=== PATIENT | female | born 1975 | race Caucasian/White ===

== ENCOUNTER 2022-03-12 13:52 | Outpatient (REF) | payer BC, MEDICAID, SELFPAY ==
[2022-03-13 03:14] LABS: CT PCR NOT DETECTED (Not Detect.); NG PCR NOT DETECTED (Not Detect.)
[2022-03-13 09:14] LABS: BV Int Neg Control Negative (Negative); BV Int Pos Control Positive (Positive)
[2022-03-15 09:27] LABS: HPV mRNA E6/E7 rflx Not Detected (Not Detected)
== END 2022-03-12 13:53 | disposition home or self-care (01) ==
LOC: HO.LAB 13:52
PROVIDERS: Visit Provider Advanced Practice Midwife
DX: Z01.419 Encounter for gynecological examination (general) (routine) without abnormal findings (principal); Z11.3 Encounter for screening for infections with a predominantly sexual mode of transmission; Z11.51 Encounter for screening for human papillomavirus (HPV)
CPT/HCPCS: 87480; 87491; 87510; 87591; 87624; 87660; 88142

== ENCOUNTER 2022-03-22 08:43 | Outpatient (REF) | payer BC, MEDICAID, SELFPAY ==
--- NOTE | ~2022-03-22 | MM_ITS ---
EXAMINATION: MM SCREENING DIGITAL BREAST TOMOSYNTHESIS, BILATERAL CLINICAL INFORMATION: Screening. Asymptomatic. The lifetime risk of breast cancer based on the Tyrer-Cuzick Model is 11%. COMPARISON: Mammography: 12/20/2014 (baseline). TECHNIQUE: Digital breast tomosynthesis is performed in both the craniocaudal and mediolateral oblique views along with computer-aided detection (CAD). Synthesized 2D images are generated from the tomosynthesis. Additional exaggerated right CC view is provided. FINDINGS: There are scattered areas of fibroglandular density (ACR BI-RADS breast composition Category b). Breast tissue composition borders on heterogeneously dense. There is no significant mass or architectural abnormality. No abnormal calcifications. Low right axillary tail node again seen. There are some minor asymmetries similar to prior exam. Skin contours are smooth. MM/MM tomosynthesis screening BI IMPRESSION: No significant changes from prior baseline study 2014. ASSESSMENT: BI-RADS 2: Benign RECOMMENDATION: Routine annual mammography screening. This patient's information was entered into a reminder system with a target due date for their next mammogram.
== END 2022-03-22 08:44 | disposition home or self-care (01) ==
LOC: HO.MAMMO 08:43
PROVIDERS: PCP Nurse Practitioner Adult Health; Visit Provider Nurse Practitioner Family
DX: Z12.31 Encounter for screening mammogram for malignant neoplasm of breast (principal)
CPT/HCPCS: 77063; 77067

== ENCOUNTER 2022-06-06 12:22 | Outpatient (REF) | payer BC, MEDICAID, SELFPAY ==
--- NOTE | ~2022-06-06 | US_ITS ---
EXAMINATION: US PELVIS ULTRASOUND CLINICAL INFORMATION: N92.4 - Excessive bleeding in the premenopausal period. Age 46. LMP 05/23/2022. COMPARISON: None TECHNIQUE: Ultrasound of the pelvis is performed using both transabdominal and transvaginal transducers along with Doppler. Transvaginal imaging is performed due to inadequate visualization transabdominally. FINDINGS: Uterus: The uterus is anteverted and measures 9.6 x 5.3 x 6.6 cm. The double wall endometrial thickness is normal at 8 mm. No fluid in uterine cavity. Endometrial echogenicity homogeneous. The uterus is smooth in contour and has normal myometrial echogenicity. No visible fibroid. There are a few tiny nabothian cysts in the cervix. Adnexa: Both ovaries are visualized. There is normal color flow to the adnexa. There is no ovarian torsion. There is no pelvic ascites or fluid collection. No adnexal mass. Right ovary measures 3.1 x 1.9 x 2.0 cm. Volume 6.2 mL. Left ovary measures 3.1 x 2.0 x 2.2 cm. Volume 7.1 mL. US/US pelvic and transvaginal IMPRESSION: -Uterus: Double wall endometrial thickness is 8 mm. No visible fibroid. Small nabothian cyst cervix. -Adnexa: No adnexal mass or pelvic ascites.
== END 2022-06-06 12:23 | disposition home or self-care (01) ==
LOC: HO.US 12:22
PROVIDERS: Visit Provider Advanced Practice Midwife
DX: N92.4 Excessive bleeding in the premenopausal period (principal)
CPT/HCPCS: 76830; 76856

== ENCOUNTER 2022-08-23 07:32 | Outpatient (REF) | payer BC, MEDICAID, SELFPAY ==
[2022-08-23 08:15] LABS: Hematocrit 48.2 % (37.0-47.0); Hemoglobin 15.5 g/dl (12.0-16.0); Mean Corpuscular HGB Conc 32.2 g/dl (31.0-35.0); Mean Corpuscular Hemoglobin 28.3 pg (27.0-33.0); Mean Corpuscular Volume 88.1 fL (80.0-98.0); Mean Platelet Volume 11.3 fL (9.4-12.3); Platelet Count 273 X10*3/uL (160-400); Red Blood Count 5.47 X10*6/uL (4.20-5.50); Red Cell Distribution Width 13.3 % (11.0-16.0); White Blood Count 8.6 X10*3/uL (4.8-10.8)
[2022-08-23 09:13] LABS: Thyroid Stimulating Hormone 1.56 uIU/mL (0.32-4.0)
== END 2022-08-23 07:33 | disposition home or self-care (01) ==
LOC: HO.LAB 07:32
PROVIDERS: PCP Nurse Practitioner Adult Health; Visit Provider Advanced Practice Midwife
DX: N92.4 Excessive bleeding in the premenopausal period (principal)
CPT/HCPCS: 36415; 84443; 85027

== ENCOUNTER 2023-03-24 08:35 | Outpatient (REF) | payer BC, MEDICAID, SELFPAY ==
--- NOTE | ~2023-03-24 | MM_ITS ---
EXAMINATION: MM SCREENING DIGITAL BREAST TOMOSYNTHESIS, BILATERAL CLINICAL INFORMATION: Screening. Asymptomatic. The lifetime risk of breast cancer based on the Tyrer-Cuzick Model is 11.2%. COMPARISON: Mammography: This study is compared with the prior mammogram from 2015. There are no interval mammograms. TECHNIQUE: Digital breast tomosynthesis is performed in both the craniocaudal and mediolateral oblique views along with computer-aided detection (CAD). Synthesized 2D images are generated from the tomosynthesis. FINDINGS: The breasts are heterogeneously dense, which may obscure small masses (ACR BI-RADS breast composition Category c). There are no significant masses, abnormal calcifications, or other abnormalities. MM/MM tomosynthesis screening BI IMPRESSION: No mammographic evidence of malignancy. ASSESSMENT: BI-RADS BI-RADS 1 - Negative RECOMMENDATION: Routine annual mammography screening. 1 year F/U This patient's information was entered into a reminder system with a target due date for their next mammogram.
== END 2023-03-24 08:36 | disposition home or self-care (01) ==
LOC: HO.MAMMO 08:35
PROVIDERS: Visit Provider Nurse Practitioner Adult Health
DX: Z12.31 Encounter for screening mammogram for malignant neoplasm of breast (principal)
CPT/HCPCS: 77063; 77067

== ENCOUNTER → 2023-03-24 09:00 | Outpatient (BNV) | payer BC, MEDICAID, SELFPAY | PROVIDERS: Visit Provider Radiology Diagnostic Radiology | DX: Z12.31 Encounter for screening mammogram for malignant neoplasm of breast (principal) | CPT/HCPCS: 77063; 77067 ==

== ENCOUNTER 2023-04-18 16:09 | Emergency (ER) | payer BC, MEDICAID, SELFPAY ==
--- NOTE | ~2023-04-18 | XR_ITS ---
EXAMINATION: XR KNEE, LEFT CLINICAL INFORMATION: Left knee pain medially. COMPARISON: None available. TECHNIQUE: Four views of the left knee. FINDINGS: Mild to moderate medial femoral-tibial degenerative joint changes are seen. There is no acute fracture. A small osseous density seen along the anterior margin of the femoral tibial joint space in the lateral projection. No significant joint effusion. The soft tissues are unremarkable. XR/XR knee LT 4V IMPRESSION: Mild to moderate medial femoral-tibial degenerative joint changes suggesting osteoarthritis. Possible small calcified loose body anterior to the femoral tibial joint space.
--- NOTE | 2023-04-18 16:19 | ED.GENADULT ---
HPI - General Adult General Chief complaint: Extremity Problem Stated complaint: L knee inj, MedEx, sent here for xrays? Time Seen by Provider: 04/18/23 18:01 Source: patient Mode of arrival: ambulatory Limitations: no limitations History of Present Illness HPI narrative: Patient is a 47 year old assigned female at with a history of diabetes presenting to the emergency department today with left knee pain. Patient states that over the last few days she has had left sided knee pain that is worth with ambulation. Patient denies any dizziness, lightheadedness, abdominal pain, nausea, vomiting, fever, chills, blurry vision, double vision, loss of vision, chest pain, difficulty breathing, shortness of breath, back pain, night sweats, pain with urination, increased urinary frequency, increased urinary urgency, blood in her urine or stool, syncope or a near syncopal episode, recent trauma or falls, bowel incontinence, bladder incontinence, bowel retention, bladder retention, or any other complaints at this time. Onset (ago): day(s) Location: left and lower extremity Radiation: non-radiation Severity: mild Severity scale (1-10): 3 Quality: aching and dull Pain Consistency: constant Relieving factors: none Exacerbating factors: movement Associated symptoms: denies other symptoms Treatments prior to arrival: none Related Data Home Medications Medication Instructions Recorded Confirmed empagliflozin 25 mg tablet 25 mg PO DAILY 03/12/22 06/19/22 (Jardiance) metformin 500 mg/5 mL oral solution 1,000 mg PO DAILY 03/12/22 06/19/22 Previous Rx's Medication Instructions Recorded prednisone 20 mg tablet 20 mg PO DAILY 7 days #7 tabs 04/18/23 Allergies Allergy/AdvReac Type Severity Reaction Status Date / Time No Known Allergies Allergy Verified 04/18/23 16:20 Review of Systems Constitutional: Constitutional: Reports no additional constitutional complaints, Denies chills, Denies fever(s) and Denies night sweats Eyes: Eyes: Reports no additional eye complaints, Denies blurry vision, Denies change in vision, Denies diplopia, Denies eye discharge, Denies loss of vision and Denies eye pain ENT: Denies dizziness Cardiovascular: Cardiovascular: Reports no additional cardiovascular complaints, Denies chest pain, Denies lightheadedness, Denies Loss of Consciousness and Denies dyspnea Respiratory: Respiratory: Reports no additional respiratory complaints and Denies dyspnea Gastrointestinal: Gastrointestinal: Reports no additional gastrointestinal complaints, Denies abdominal pain, Denies melena, Denies hematochezia, Denies change in bowel habits and Denies change in stool character Genitourinary: Genitourinary: Denies hematuria, Denies urinary frequency, Denies dysuria, Denies urinary incontinence, Denies urinary hesitancy and Denies urinary urgency Musculoskeletal: Musculoskeletal: Reports no additional musculoskeletal complaints, Denies numbness and Denies tingling Comments: left knee pain Neurologic: Denies dizziness, Denies loss of vision, Denies numbness and Denies tingling Psychiatric: Psychiatric: Reports no additional psychiatric complaints Endocrine: Endocrine: Reports no additional endocrine complaints Hematologic/Lymphatic: Hematologic/Lymphatic: Reports no additional hematologic/lymphatic complaints Allergic/Immunologic: Allergic/Immunologic: Reports no additional allergic/immunologic complaints PMFSH Past Medical History Attestation statement: The following information was validated with the patient. Source: old records reviewed and nursing notes reviewed Medical History Cervical cancer screening Diabetes Obesity (BMI 30.0-34.9) Umbilical hernia Social History Social History Patient Tobacco Use Status: Never used Tobacco Advance Directives: No Advance Directives Information Provided: Yes Physical Exam ED Vital Signs: Vital Signs - 24 hr 04/18/23 16:20 Temperature 96.7 F L Pulse Rate 84 Respiratory Rate 16 Blood Pressure 114/60 Pulse Oximetry 96 Oxygen Delivery Method Room Air BMI result Body Mass Index 29.1 Const General: cooperative, no acute distress, alert and awake Nutritional Appearance: well nourished Orientation/consciousness: patient oriented x3 Limitations: no limitations [facility] Head: Yes normal to inspection and Yes atraumatic Ears: hearing grossly normal bilaterally and external ears normal General nose exam: Normal external nose present, no nasal discharge noted and no epistaxis Face and sinus: Yes normal facial exam, No abrasion and No laceration Mouth: Normal oral and palatal mucosa present, no drooling and no muffled voice Eyes General: appearance normal, both eyes and all related structures Periorbital: periorbital findings normal Eyelids: Yes eyelids normal Conjunctivae: conjunctivae normal Pupils: Equal, round and reactive pupils present EOM: EOMs intact bilaterally Neck Neck: Yes normal visual inspection, Yes full ROM and Yes no lymphadenopathy Chest Chest palpation & inspection: normal inspection of the chest Resp Effort & Inspection: normal respiratory effort and able to speak in complete sentences GI Inspection: Yes normal to inspection Neuro General: patient oriented x3 and moves all extremities Cranial nerves: Yes Equal, round and reactive pupils present Cognition (Neuro): normal cognition Motor exam (neuro): 5/5 motor strength present throughout Sensory Exam: Normal double simultaneous stimulation for sensation Coordination: [id number] test normal Extrem General: Yes normal to inspection, Yes full ROM and Yes capillary refill normal Psych Appearance: grossly normal Mental Status: mental status grossly normal Affect: normal affect Attitude: cooperative Thought process: Normal thought process present Thought content: Normal thought content present Insight: Good insight present (Psych) Course Course Course Narrative: This is a rapid medical exam: Additional HPI, ROS, PE not included below will be deferred to primary provider. Patient is a 47-year-old female presenting to the emergency department with complaint of left knee pain since Friday. Reports pain worsens with ambulation. Denies any fall or other trauma. Denies fevers. Denies any erythema or swelling, states pain is to medial aspect of knee. Denies known tick bites, states she did find a dog tick in her hair around one month ago. Plan: x-ray, tick panel Procedures Orthopedic Splinting/Casting Injury #1: Side: left Lower Extremity Injury Location: knee Lower Extremity Immobilizer: Larry wrap Medical Decision Making Medical Decision Making MDM Narrative: Patient is a 47 year old assigned female at with a history of diabetes presenting to the emergency department today with left knee pain. Patient's physical exam was unremarkable. Patient's left knee x-ray showed evidence of osteoarthritis. I explained my physical exam findings as well as all test results to the patient. I answered all questions asked by the patient. Patient's left knee was wrapped in an LARRY wrap, without incident. Patient's PMS was intact prior to and after LARRY wrap application. I stressed the importance of the patient taking her medication as prescribed. I stressed the importance of the patient following up with her primary care provider and an orthopedic provider. I stressed the importance of the patient returning to the emergency department immediately if her symptoms were to worsen or if she were to develop any dizziness, shortness of breath, difficulty breathing, chest pain, blurry vision, loss of vision, nausea, vomiting, abdominal pain, fever, chills, back pain, or any other complaints. Patient verbalized agreement and understanding with this treatment plan and discharge. Differential Diagnosis Differential Diagnoses: The differential diagnosis associated with the presentation includes left knee pain Osteoarthritis Left lower leg fracture Left knee sprain Left knee strain Independent Interpretation I performed an independent interpretation of an: Plain X-Ray Interpretation: My interpretation is in agreement with the radiologist's impression of this imaging study. EXAMINATION: XR KNEE, LEFT CLINICAL INFORMATION: Left knee pain medially.? COMPARISON: None available.? TECHNIQUE: Four views of the left knee. FINDINGS: Mild to moderate medial femoral-tibial degenerative joint changes are seen. There is no acute fracture. A small osseous density seen along the anterior margin of the femoral tibial joint space in the lateral projection. No significant joint effusion. The soft tissues are unremarkable.? XR/XR knee LT 4V IMPRESSION: Mild to moderate medial femoral-tibial degenerative joint changes suggesting osteoarthritis. Possible small calcified loose body anterior to the femoral tibial joint space. Dictated By: Nam Yanes MD Signed By: Electronically signed by Nam Yanes MD 04/18/23 6338 Radiology Impression Discussion of test interpretation with radiology: I have reviewed the radiologist's reading. Discharge Plan Discharge Clinical Impression: Osteoarthritis Patient Disposition: Home, Self-Care Instructions: Osteoarthritis (DC) Additional Instructions: Follow up with your primary care provider and an orthopedic provider. Return to the emergency department immediately if your symptoms worsen or if you develop any dizziness, shortness of breath, difficulty breathing, chest pain, blurry vision, loss of vision, nausea, vomiting, abdominal pain, fever, chills, back pain, or any other complaints. Prescriptions: New prednisone 20 mg tablet 20 mg PO DAILY 7 Days Qty: 7 0RF No Action Jardiance 25 mg tablet 25 mg PO DAILY metformin 500 mg/5 mL solution 1,000 mg PO DAILY [place] [facility] [place]] (Call to establish and follow up with a primary care provider. If you already have a primary care provider, please follow up with them.) [facility] [place] Group] (Call to establish and follow up with a primary care provider. If you already have a primary care provider, please follow up with them.) [facility] [place] Group] (Call to establish and follow up with a primary care provider. If you already have a primary care provider, please follow up with them.) [facility] [place] [facility] [place] Group] (Call to establish and follow up with an orthopedic provider.) Interventions: ED Discharge Assessment Last Done: 04/18/23 18:19 Discharge Date/Time: 04/18/23 18:19 Print Language: Lao
[2023-04-18 16:20] VITALS: BP 114/60; PULSE 84; RESP 16; TEMP 35.9; O2SAT 96; BMI 29.1
[2023-04-21 23:12] LABS: A. Phagocytphilium DNA,RT-PCR NOT DETECTED (NOT DETECTED); Babesia Microti DNA, RT-PCR NOT DETECTED (NOT DETECTED); Borrelia Miyamotoi,DNA RT-PCR NOT DETECTED (NOT DETECTED); E.Chaffeensis DNA RT-PCR NOT DETECTED (NOT DETECTED); Lyme(Borrelia ssp)DNA RT-PCR NOT DETECTED (NOT DETECTED)
== END 2023-04-18 18:19 | disposition home or self-care (01) ==
PROVIDERS: Registered Nurse Emergency; Emergency Provider Emergency Medicine Emergency Medical Services
DX: S89.92XA Unspecified injury of left lower leg, initial encounter (principal); M17.12 Unilateral primary osteoarthritis, left knee; X58.XXXA Exposure to other specified factors, initial encounter; Y93.9 Activity, unspecified; Y92.9 Unspecified place or not applicable; Y99.9 Unspecified external cause status; Z20.822 Contact with and (suspected) exposure to COVID-19; Z20.828 Contact with and (suspected) exposure to other viral communicable diseases; Z79.899 Other long term (current) drug therapy
CPT/HCPCS: 29505; 36415; 73564; 87798; 87801; 99282; 99283

== ENCOUNTER 2023-04-29 08:43 | Outpatient (REF) | payer BC, MEDICAID, SELFPAY ==
[2023-04-29 17:59] LABS: CT PCR NOT DETECTED (Not Detect.); NG PCR NOT DETECTED (Not Detect.)
[2023-04-30 12:48] LABS: BV Int Neg Control Negative (Negative); BV Int Pos Control Positive (Positive)
[2023-05-06 05:09] LABS: HPV mRNA E6/E7 rflx Not Detected (Not Detected)
== END 2023-04-29 08:44 | disposition home or self-care (01) ==
LOC: HO.LNP 08:43
PROVIDERS: Visit Provider Advanced Practice Midwife
DX: Z01.419 Encounter for gynecological examination (general) (routine) without abnormal findings (principal); N92.4 Excessive bleeding in the premenopausal period; Z87.42 Personal history of other diseases of the female genital tract; Z79.899 Other long term (current) drug therapy
CPT/HCPCS: 0353U; 87480; 87510; 87624; 87660; 88142

== ENCOUNTER 2023-04-29 08:43 | Outpatient (AMB) | payer BC, MEDICAID, SELFPAY ==
[2023-04-29 08:52] VITALS: BP 104/68; BMI 29.1
--- NOTE | 2023-04-29 08:52 | A.OFFVIS_ITS ---
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: No Information Interpreted: non-clinical & clinical Corporate Travel Coordinator: Corporate Travel Coordinator Present (Tiffany) Allergies No Known Allergies Allergy (Verified 04/29/23 08:56) Medication List - Last Reconciled 04/29/23 by Cherise Harmon CNM lisinopril 5 mg PO DAILY metformin ER 1,000 mg PO BID prednisone 20 mg PO DAILY 7 days semaglutide (Ozempic) mg subcut simvastatin 20 mg PO BEDTIME Is last menstrual period known: Yes Last menstrual period: 04/25/23 Post menopausal: No Patient : No 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 She is concerned because she does get heavy clots and they can be challenging to manage in because of the fear of toxic shock she has never worn tampons at night so she is always worried about spillage in the morning when she gets up so sometime she wears adult diapers. She is also got a lot of premenstrual symptoms that she recognizes ahead of time. She is going on vacation driving with her 4 children to 1 of the [facility] at the end of April and she is due to get her. While she is there and she really would rather not have her. While she is there. She was on control pills in the past and had no problem taking them she is diabetic she has been losing some weight she is on Ozempic but not for weight loss but to help with her diabetes and she has been able to go off 1 other medication and bring her hemoglobin A1c down to is 6 point something from 10 point something. 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 She is not currently sexually active. [facility] Medical History (Updated 04/29/23 @ 10:16 by Cherise Harmon CNM) Cervical cancer screening Diabetes Obesity (BMI 30.0-34.9) Umbilical hernia Surgical History (Updated 04/29/23 @ 09:00 by GERMANIA Buitrago) Hx of hernia repair Hx of knee surgery Family History (Updated 04/29/23 @ 08:59 by GERMANIA Buitrago) Father Esophageal cancer Social History Patient Tobacco Use Status: Never used Tobacco Female Reproductive History Menstrual Age of Menarche: 15 Duration of menses: 6-7 days Date of last menstrual period: 04/25/23 control method: none Total pregnancies: 6 Full term: 3 Number of Living Children: 4 Multiple births: 1 Date of last pap smear: 03/13/22 (negative) History of abnormal pap smear: Yes (ASCUS 2016) Date of Mammogram: 03/24/23 Physical Exam Vital Signs: Last Vital Signs BP 104/68 04/29/23 08:52 BMI result Body Mass Index 29.1 Const General: healthy appearing, comfortable, no acute distress, well developed and alert Nutritional Appearance: average body habitus Orientation/consciousness: patient oriented x3 Limitations: no limitations HEENT Head: Yes normocephalic Neck Neck: Yes normal visual inspection Thyroid: Thyroid normal Chest Chest palpation & inspection: normal inspection of the chest Breast/axilla inspection: normal inspection of the breasts and normal inspection of the axillae Breast/axilla palpation: normal palpation of the breasts and normal palpation of the axillae Resp Effort & Inspection: normal respiratory effort GI Inspection: Yes normal to inspection, No Abdominal wall edema and No distended Palpation (GI): Soft to palpation and nontender General: Yes bladder normal to palpation External Female Exam: normal external appearance and normal appearance of the urethra Speculum Exam - Vagina: normal appearance of the vagina, normal palpation and normal vaginal discharge Speculum Exam - Cervix: normal appearance of the cervix, normal palpation and nontender Bimanual exam- vagina & uterus: normal bimanual exam, normal palpation, uterine size normal, bladder normal to palpation, consistency normal, normal palpation, uterine mobility normal, uterine shape normal, No Cervical tenderness present, non-tender and no cervical motion tenderness Bimanual Exam- Adnexa, other: normal adnexae, no masses, normal and No adnexal tenderness Neuro General: patient oriented x3 Assessment & Plan Assessment & Plan (1) control counseling: Code(s): Z30.09 - Encounter for other general counseling and advice on contraception (2) Menorrhagia, premenopausal: Code(s): N92.4 - Excessive bleeding in the premenopausal period (3) Hx of abnormal cervical Pap smear: Comment: hx of ascus 2017. Code(s): Z87.42 - Personal history of other diseases of the female genital tract (4) Cervical cancer screening: Comment: 03/12/2022 Pap equals negative with negative HPV. Code(s): Z12.4 - Encounter for screening for malignant neoplasm of cervix Plan -----Discussed in this visit the following: healthy balanced diet, regular and consistent exercise, getting recommended health screens, doing the best she can for her particular health concerns, kegel exercises, pap smear screening and followup recommendations, mammography screening and SBE, normal changes in cycles in her life stage--- . she is up-to-date on her mammograms and says they we called her just to get a breast ultrasound because her breasts were fatty but that was the only concern. She has never had of history of blood clots or liver problems. She does not smoke she was on control pills after the of her younger children. She is looking to do something temporarily to try and delay a. options of medication options discussed along with their risks and side effects. Options that were discussed included control pills with their attendant side effects and risks especially of thromboembolic events. Also discussed was a Mirena IU S which if she chose to use I would want to insert today because she is on the tail end of her period And also discussed the optiion of a single dose of Depo-Provera. she ended up choosing control pills and I recommend she starts them to day I reviewed all of the danger signs and what to do and precautions of recommending frequent moving of her limbs so there is no blood pooling or stasis recommend getting off the highway every couple of hours and moving around which she says she needs to do with her 4 young children anyway also recommended sunscreen as she is fair complected and going through rosacea treatment and has evidence of sun exposure.. Her plan is to take the control pills from now on just until she returns home from her Vacation. And then she will stop. I am giving her a 3 month supply just in case she is not quite home and is due for the placebo pills. Pap was done because of her history of ASCUS though last year's Pap was normal. And we will see her in 1 year she is following up with her primary care provider about everything else. Recommend exercise to help with the weight loss and muscle toning.. Orders: Orders Bacterial Vaginosis Panel Today Z01.419 - Encounter for gynecological examination (general) (routine) without abnormal findings CT NG by PCR Today Z01.419 - Encounter for gynecological examination (general) (routine) without abnormal findings Pap Smear Today Z01.419 - Encounter for gynecological examination (general) (routine) without abnormal findings Medications: New desog-e.estradiol/e.estradiol 0.15-0.02 mgx21 /0.01 mg x 5 start today... 1 tab PO DAILY 84 tabs 0RF Coding Level of Care Code Est Pt Prev Care 40-64y(53327) Diagnoses control counseling Z30.09 Menorrhagia, premenopausal N92.4 Hx of abnormal cervical Pap smear Z87.42 Cervical cancer screening Z12.4
== END 2023-04-29 10:17 | disposition home or self-care (01) ==
PROVIDERS: Visit Provider Advanced Practice Midwife
DX: Z01.419 Encounter for gynecological examination (general) (routine) without abnormal findings (principal); N92.4 Excessive bleeding in the premenopausal period; Z87.42 Personal history of other diseases of the female genital tract
CPT/HCPCS: 99396

== ENCOUNTER 2024-03-29 08:59 | Outpatient (REF) | payer BC, MEDICAID, SELFPAY ==
--- NOTE | ~2024-03-29 | MM_ITS ---
EXAMINATION: MM SCREENING DIGITAL BREAST TOMOSYNTHESIS, BILATERAL CLINICAL INFORMATION: Screening. Asymptomatic. COMPARISON: Mammography: This study is compared with prior exams dating back to 2021. TECHNIQUE: Digital breast tomosynthesis is performed in both the craniocaudal and mediolateral oblique views along with computer-aided detection (CAD). Synthesized 2D images are generated from the tomosynthesis. FINDINGS: The breasts are heterogeneously dense, which may obscure small masses (ACR BI-RADS breast composition Category c). There are no significant masses, abnormal calcifications, or other abnormalities. MM/MM tomosynthesis screening BI IMPRESSION: No mammographic evidence of malignancy. ASSESSMENT: BI-RADS BI-RADS 1 - Negative RECOMMENDATION: Routine annual mammography screening. 1 year F/U This examination should not preclude the clinical evaluation of a suspicious palpable abnormality. This patient's information was entered into a reminder system with a target due date for their next mammogram.
== END 2024-03-29 09:00 | disposition home or self-care (01) ==
LOC: HO.MAMMO 08:59
PROVIDERS: PCP Nurse Practitioner Family; Visit Provider Nurse Practitioner Family
DX: Z12.31 Encounter for screening mammogram for malignant neoplasm of breast (principal)
CPT/HCPCS: 77063; 77067

== ENCOUNTER → 2024-03-29 09:00 | Outpatient (BNV) | payer BC, MEDICAID, SELFPAY | PROVIDERS: PCP Nurse Practitioner Family; Visit Provider Radiology Diagnostic Radiology | DX: Z12.31 Encounter for screening mammogram for malignant neoplasm of breast (principal) | CPT/HCPCS: 77063; 77067 ==

== ENCOUNTER 2024-05-05 08:51 | Outpatient (AMB) | payer BC, MEDICAID, SELFPAY ==
--- NOTE | 2024-05-05 09:07 | MHC.OFFVIS ---
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 She is very busy working and raising her 4 children, all boys. She has been working hard on losing weight and managing her diabetes which developed ever since her with the twins. She does get heavy regular periods but she decided not to go on the control pills to manage them and she feels glad that she did she uses condoms when she does have sex she is open to testing for infection though not concerned today she would like a Pap smear she is nervous about missing some thing. She had an abnormal Pap smear years ago. She recently had her mammogram she was told she had fatty dense breasts. She maybe interested in finding a new primary care provider within the [facility] system.. She is using Ozempic help with the diabetes and the weight loss and she lost some weight but now has plateaued and isn't losing anymore and is frustrated by that She had a hernia repair some years ago at [facility] but for quite some time has felt that there is a new bulge and her upper abdomen when she stands up and she wanted me to feel it. [facility] Medical History (Updated 05/05/24 @ 09:56 by Cherise Harmon CNM) Obesity (BMI 30.0-34.9) Cervical cancer screening Diabetes Umbilical hernia Surgical History Hx of hernia repair Hx of knee surgery Family History Father Esophageal cancer Social History Patient Tobacco Use Status: Never used Tobacco Female Reproductive History Menstrual Age of Menarche: 15 Date of last menstrual period: 04/18/24 control method: none Total pregnancies: 6 Full term: 3 Number of Living Children: 4 Multiple births: 1 Date of last pap smear: 05/01/23 (negative,2021,neg.) History of abnormal pap smear: Yes (2017,ASCUS) Date of Mammogram: 03/29/24 (negative) Physical Exam Vital Signs: Last Vital Signs BP 118/70 05/05/24 09:08 BMI result Body Mass Index 29.7 Const General: healthy appearing, comfortable, no acute distress, well developed and alert Nutritional Appearance: average body habitus Orientation/consciousness: patient oriented x3 Limitations: no limitations HEENT Head: Yes normocephalic Neck Neck: Yes normal visual inspection Chest Chest palpation & inspection: normal inspection of the chest Breast/axilla inspection: normal inspection of the breasts and normal inspection of the axillae Breast/axilla palpation: normal palpation of the breasts and normal palpation of the axillae Resp Effort & Inspection: normal respiratory effort GI Other: has increased adipose in abd, when pt stands up, she has a bulging upper abd ? new hernia? Inspection: Yes normal to inspection, No Abdominal wall edema and No distended Palpation (GI): Soft to palpation and nontender General: Yes bladder normal to palpation External Female Exam: normal external appearance and normal appearance of the urethra Speculum Exam - Vagina: normal appearance of the vagina, normal palpation and normal vaginal discharge Speculum Exam - Cervix: normal appearance of the cervix, normal palpation and nontender Bimanual exam- vagina & uterus: normal bimanual exam, normal palpation, uterine size normal, bladder normal to palpation, consistency normal, normal palpation, uterine mobility normal, uterine shape normal, No Cervical tenderness present, non-tender and no cervical motion tenderness Bimanual Exam- Adnexa, other: normal adnexae, no masses, normal and No adnexal tenderness Neuro General: patient oriented x3 Assessment & Plan Assessment & Plan (1) Umbilical hernia: Comment: had it repaired at [place] ; ? has new bulge upper abd Code(s): K42.9 - Umbilical hernia without obstruction or gangrene Category: Medical (2) Diabetes: Code(s): E11.9 - Type 2 diabetes mellitus without complications Category: Medical (3) Cervical cancer screening: Comment: 03/12/2022 Pap equals negative with negative HPV.; 04/29/2023 Pap is negative with negative HPV. Code(s): Z12.4 - Encounter for screening for malignant neoplasm of cervix Category: Medical (4) Hx of abnormal cervical Pap smear: Comment: hx of ascus 2017. Code(s): Z87.42 - Personal history of other diseases of the female genital tract Category: Medical (5) Well woman exam with routine gynecological exam: Code(s): Z01.419 - Encounter for gynecological examination (general) (routine) without abnormal findings Category: Medical (6) Obesity (BMI 30.0-34.9): Comment: working on it, now bmi 29+, has plateaued.... Code(s): E66.9 - Obesity, unspecified Category: Medical Plan -----Discussed in this visit the following: healthy balanced diet, regular and consistent exercise, getting recommended health screens, doing the best she can for her particular health concerns, kegel exercises, pap smear screening and followup recommendations, mammography screening and SBE, normal changes in cycles in her life stage--- . Discussed her various concerns. Discussed control and condom use and safer sex she would not want to get at this point in her life is very clear about that. But she does not want any other control. She is concerned about whether not she might have a tumor in her abdomen or whether not it might be a new hernia even with the struggling with the weight loss she can not lose the abdominal skin and abdominal girth. She had been referred in the past to bariatric surgery but decided not go that route and is working to lose the weight on her own. She has reached a plateau with her weight loss and that is frustrating. She does mainly walking for exercise suggested adding hand weights to her home routine when she is home with the 4 boys. She is up-to-date on her mammograms I have placed a referral to general surgery so she can have a discussion and suggested she may also check bariatric surgery if she is interested. Also suggested some primary care options within [facility] system and she is going to check at the front for list as well. RTC 1 year. Orders: Orders Bacterial Vaginosis Panel Today N89.8 - Other specified noninflammatory disorders of vagina CT NG by PCR Today N89.8 - Other specified noninflammatory disorders of vagina PAP + HPV E6/E7 rfx 18 Today Z01.419 - Encounter for gynecological examination (general) (routine) without abnormal findings Referrals General Surgery Referral E11.9 - Type 2 diabetes mellitus without complications, K42.9 - Umbilical hernia without obstruction or gangrene, Z01.419 - Encounter for gynecological examination (general) (routine) without abnormal findings, Z12.4 - Encounter for screening for malignant neoplasm of cervix, Z87.42 - Personal history of other diseases of the female genital tract Coding Level of Care Code Est Pt Prev Care 40-64y(86010) Diagnoses Umbilical hernia K42.9 Diabetes E11.9 Cervical cancer screening Z12.4 Hx of abnormal cervical Pap smear Z87.42 Well woman exam with routine gynecological exam Z01.419 Obesity (BMI 30.0-34.9) E66.9
[2024-05-05 09:08] VITALS: BP 118/70; BMI 29.7
== END 2024-05-05 10:23 | disposition home or self-care (01) ==
LOC: HO.HWSM 08:51
PROVIDERS: PCP Nurse Practitioner Family; Visit Provider Advanced Practice Midwife
DX: Z01.419 Encounter for gynecological examination (general) (routine) without abnormal findings (principal); K42.9 Umbilical hernia without obstruction or gangrene; E11.9 Type 2 diabetes mellitus without complications; Z87.42 Personal history of other diseases of the female genital tract; E66.9 Obesity, unspecified
CPT/HCPCS: 99396

== ENCOUNTER 2024-05-05 08:51 | Outpatient (REF) | payer BC, MEDICAID, SELFPAY ==
[2024-05-06 06:05] LABS: CT PCR NOT DETECTED (Not Detect.); NG PCR NOT DETECTED (Not Detect.)
[2024-05-06 10:42] LABS: Bacterial Vaginosis PCR NEGATIVE (Negative); Candida Group PCR NOT DETECTED (Not Detect); Candida glab krusei PCR NOT DETECTED (Not Detect); Trichomonas vaginalis PCR NOT DETECTED (Not Detect)
[2024-05-07 13:38] LABS: HPV mRNA E6/E7 Not Detected (Not Detected)
== END 2024-05-05 08:52 | disposition home or self-care (01) ==
LOC: HO.LAB 08:51
PROVIDERS: PCP Nurse Practitioner Family; Visit Provider Advanced Practice Midwife
DX: Z01.419 Encounter for gynecological examination (general) (routine) without abnormal findings (principal); Z11.51 Encounter for screening for human papillomavirus (HPV); N89.8 Other specified noninflammatory disorders of vagina
CPT/HCPCS: 0352U; 36415; 87491; 87591; 87624; 88175

== ENCOUNTER 2024-05-18 13:19 | Outpatient (AMB) | payer BC, MEDICAID, SELFPAY ==
--- NOTE | 2024-05-18 13:23 | MHC.OFFVIS ---
Vital Signs 05/18/24 13:27 Height 5 ft 10 in Weight 207 lb BMI 29.7 BP 128/71 Blood Pressure Location Rt brachial Position Sitting Pulse 70 Intake Visit Reasons: Umbilical hernia Intake Note: Patient referred by Cherise Peck'waldemar for umbilical hernia. Hx of umbilical hernia repair in 2021 @ [place]. Hx of hernia after childbirth in 2009. Reports hernia has been repaired twice before. Patient c/o: feels like a large tumor. 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 She had this repaired in 2009. She was repaired again in 2021. She now presents with a very large, symptomatic ventral/umbilical recurrent hernia. She is otherwise tolerating her diet. He is having regular bowel habits. She does occasional do heavy lifting but nothing regularly. Chart was reviewed and patient evaluated. [facility] Medical History Obesity (BMI 30.0-34.9) Cervical cancer screening Diabetes Umbilical hernia Surgical History Hx of hernia repair Hx of knee surgery Family History Father Esophageal cancer Social History Patient Tobacco Use Status: Never used Tobacco Female Reproductive History Menstrual Age of Menarche: 15 Physical Exam Chest Other: Chest breath sounds bilaterally, HS 1 in 2 GI Other: Patient was examined both supine and standing with Valsalva. Mildly corpulent abdomen. Huge hernia sac with a proximally 4 cm fascial defect. Hernia is reducible. Abdomen otherwise benign Assessment & Plan Assessment & Plan (1) Recurrent umbilical hernia: Code(s): K42.9 - Umbilical hernia without obstruction or gangrene Category: Surgical Plan Patient like to have this repaired. Risks, benefits, alternatives of open repair of recurrent recurrent umbilical/ventral reducible hernia with mesh were reviewed with the patient and included but not limited to bleeding, infection, recurrence, numbness, pain, scarring, bowel injury and the patient wishes to proceed. All questions answered. Arrangements were made for this. Coding Level of Care Code New Pt Level 5 (98065) Diagnoses Recurrent umbilical hernia K42.9
[2024-05-18 13:27] VITALS: BP 128/71; PULSE 70; BMI 29.7
== END 2024-05-18 13:51 | disposition home or self-care (01) ==
PROVIDERS: PCP Nurse Practitioner Family; Referring Provider Advanced Practice Midwife; Visit Provider Surgery
DX: K42.9 Umbilical hernia without obstruction or gangrene (principal)
CPT/HCPCS: 99204

== ENCOUNTER → 2024-05-18 13:19 | Outpatient (BNVA) | payer BC, MEDICAID, SELFPAY | PROVIDERS: PCP Nurse Practitioner Family; Referring Provider Advanced Practice Midwife; Visit Provider Surgery ==

== ENCOUNTER 2024-09-10 06:22 | Day surgery (SDC) | payer BC, MEDICAID, SELFPAY ==
[2024-09-08 11:28] VITALS: BMI 29.7
--- NOTE | 2024-09-09 08:56 | P.HPSUR_ITS ---
Pre-Procedural Eval Section A - 24 Hr Update-Section A only Date of Service: 09/10/24 The patient is an INPATIENT: No Changes since office visit: No Cold of Flu in the past 2 weeks, No New Medical Problems, No Changes in Medication and No Patient answered all questions Section B - Complete if H&P > 30 days Chief Complaint: Umbilical hernia without obstruction or gangrene Allergies: Allergies Allergy/AdvReac Type Severity Reaction Status Date / Time No Known Allergies Allergy Verified 05/18/24 13:26 Review of Systems Sugical H&P ROS: Negative: Constitution, Cardiovascular, Respiratory, Neurological, Psychiatric, Hem-Onc, Allergic/Immunologic, Gastrointestinal, Genitourinary, Musculoskeletal, Integumentary, Endocrine and Ey es/Ears/Nose/Throat Exam Surgical H&P Exam: Normal: HEENT, Normal: Heart, Normal: Lungs, Normal: Extremities, Normal: Abdomen, Normal: Skin and Normal: Neurological Plan I have reviewed the history and physical and performed a pertinent physical examination on my patient. No changes have occurred unless specified. Time Spent With Patient Time: Total time managing care of this patient today ____ minutes.
[2024-09-10] VITALS (9 sets, daily range): BP systolic 119–134; BP diastolic 72–78; PULSE 60–70; RESP 16; TEMP 36.1–36.8; O2SAT 94–98
[2024-09-10 07:31] LABS: UPreg QC Valid YES; Urine Pregnancy NEGATIVE (NEGATIVE)
[2024-09-10 07:52] LABS: Glucose, Whole Blood 104 mg/dL (60-115)
[2024-09-10] MEDS: Lactated Ringers 1,000 ML 100 ML IVCONT (08:04)
--- NOTE | 2024-09-10 08:30 | HO.ANESPROP2 ---
Documented by User: Mary Jo Macias NP 09/08/24 14:58 HPI - Anesthesia Eval Consult details Narrative: 48yo F for Open recurrent Hernia Umbilical Anesthesia Pre-Procedure Meds Is the patient on any of the following meds?: GLP1/DPP4 PMFSH Active Problems Active Problems: All Active Problems Recurrent umbilical hernia (Acute) Well woman exam with routine gynecological exam (Acute) Hx of abnormal cervical Pap smear (Acute) control counseling (Acute) Menorrhagia, premenopausal (Acute) Obesity (BMI 30.0-34.9) (Acute) Cervical cancer screening (Acute) Umbilical hernia (Acute) Diabetes (Acute) Past Medical History Medical History (Updated 09/08/24 @ 11:10 by Homa Walton RN) Cervical cancer screening Obesity (BMI 30.0-34.9) Diabetes Umbilical hernia Family History Family History Father Esophageal cancer Surgical History Surgical History (Updated 09/08/24 @ 11:00 by Homa Walton RN) Hx of hernia repair Hx of knee surgery Social History Social History Patient Tobacco Use Status: Never used Tobacco Use of substances other than those prescribed or required for medical reasons: No Are you DNR?: No Advance Directives: No Advance Directives Information Provided: Yes Meds Allergies Allergy/AdvReac Type Severity Reaction Status Date / Time No Known Allergies Allergy Verified 05/18/24 13:26 Home Medications ?Medication ?Instructions ?Recorded ?Confirmed ?Last Taken ?Type semaglutide 1 mg/dose (4 mg/3 mL) 1 mg subcut QWEEK 04/29/23 09/10/24 08/22/24 History subcutaneous pen injector (Ozempic) atorvastatin 20 mg tablet 20 mg PO DAILY 05/18/24 09/10/24 Unknown History metformin 500 mg tablet 500 mg PO BID 05/18/24 09/10/24 Unknown History Exam Height,Weight and Vital Signs: Height 5 ft 10 in Weight 93.894 kg Assessment and Plan Assessment Anesthesia Assessment: Chart Reviewed Documented by User: Joanie Thacker DO 09/10/24 08:43 HPI - Anesthesia Eval Anesthesia Pre-Procedure Meds Is the patient on any of the following meds?: GLP1/DPP4 PMFSH Past Medical History Medical History (Updated 09/08/24 @ 11:10 by Homa Walton RN) Cervical cancer screening Obesity (BMI 30.0-34.9) Diabetes Umbilical hernia Family History Family History Father Esophageal cancer Family history of problems with anesthesia: No Surgical History Surgical History (Updated 09/08/24 @ 11:00 by Hoam Walton RN) Hx of hernia repair Hx of knee surgery History of Problems with Anesthesia: Yes Social History Social History Patient Tobacco Use Status: Never used Tobacco Use of substances other than those prescribed or required for medical reasons: No Are you DNR?: No Advance Directives: No Advance Directives Information Provided: Yes Meds Allergies Allergy/AdvReac Type Severity Reaction Status Date / Time No Known Allergies Allergy Verified 05/18/24 13:26 Home Medications ?Medication ?Instructions ?Recorded ?Confirmed ?Last Taken ?Type semaglutide 1 mg/dose (4 mg/3 mL) 1 mg subcut QWEEK 04/29/23 09/10/24 08/22/24 History subcutaneous pen injector (Ozempic) atorvastatin 20 mg tablet 20 mg PO DAILY 05/18/24 09/10/24 Unknown History metformin 500 mg tablet 500 mg PO BID 05/18/24 09/10/24 Unknown History Exam Exam Date and Time: 09/10/24 0830 Height,Weight and Vital Signs: Height 5 ft 10 in Weight 93.894 kg Vital Signs Temperature 98.2 F 09/10/24 07:45 Pulse Rate 65 09/10/24 07:45 Respiratory Rate 16 09/10/24 07:45 Blood Pressure 130/75 09/10/24 07:45 Pulse Oximetry 98 09/10/24 07:45 Oxygen Delivery Method Room Air 09/10/24 07:45 Temperature 98.2 F 09/10/24 07:45 Pulse Rate 65 09/10/24 07:45 Respiratory Rate 16 09/10/24 07:45 Blood Pressure 130/75 09/10/24 07:45 Pulse Oximetry 98 09/10/24 07:45 Oxygen Delivery Method Room Air 09/10/24 07:45 Airway Mallampati Class: I TM Dist: <=3cm Neck ROM: Full Loose/Missing/Broken Teeth: No (patient denies any loose or broken teeth) Heart: S1S2 Lungs: CTAB Assessment and Plan Assessment Anesthesia Assessment: Anesthesia Plan Discussed and Chart Reviewed Final Anesthetic Review Family History of Problems with Anesthesia: No History of Problems with Anesthesia: Yes NPO: Yes ASA Class: II Final Preanesthetic Review: No Changes in Pt Med Stat, Meds/Allgs Chart Reviewed, Consent Obtained/Reviewed and Anes Risks/Benef Reviewed Patient Risk: Low Procedure Risk: Low Anesthetic Plan Anesthetic Plan: MAC: and Agree w/ Assess. and Plan Disposition: Standard PACU
--- NOTE | 2024-09-10 11:01 | W.PM.OPN ---
Operative Note Operative Note Date of Service: 09/10/24 Narrative: Preoperative diagnosis: [] Recurrent incarcerated ventral hernia Postop diagnosis: [] The same Procedure [] mesh explantation, adhesionolysis, repair of recurrent incarcerated ventral hernia with Bard mesh Surgeon: [] Rick Trackless Trolley Driver: [] Keron Type of Anesthesia: [] MAC Indication for surgery: [] Patient had a prior ventral hernia repair and an outside institution a few years ago. She presents with a recurrence. Intraoperative findings demonstrated marked cicatrization and scarring and prior mesh placement blow out. Extensive adhesions of incarcerated omentum to the hernia sac and mesh required meticulous and prolonged adhesionolysis to separate the two. Mesh explantation uneventfully performed as well. Corpulent abdomen. Defect measured roughly 8 by six cm. Findings: [] Patient brought to the operating room, placed on operative table supine position, after an adequate level of MAC anesthesia was induced, the patient's abdomen is prepped and draped in usual sterile fashion. Using a transverse incision over the previous hernia repair in the supraumbilical ventral area, this carried down through skin, subcutaneous tissue, where a multilobulated large hernia sac was identified and circumferentially dissected down to fascia. Incarcerated omental contents were encountered when sac was opened. These were reduced, requiring extensive adhesion takedown of the mesh to the omentum.. Prior mesh was also identified and had blown out left laterally. Extensive adhesions of omentum to this required adhesionolysis. Mesh was able to be uneventfully explanted. Fascia margins were circumferentially cleared. An appropriately sized Bard mesh with several cm circumferentially fascia overlap was placed and secured using u stitch and interrupted 0 Ethibond sutures to the fascia. At completion, mesh was in very good position with no gaps or tension. Wound was irrigated, secured hemostasis, and closed in the following manner; posterior aspect of the umbilicus was tacked to the wound floor using interrupted 3-0 Vicryl sutures. Subcutaneous tissue was reapproximated using interrupted 3-0 Vicryl suture. Interrupted inverted dermal 3-0 Vicryl sutures followed by Steri-Strips and sterile dressings were applied. Wound was infiltrated at the beginning and at the end with 0.5% Marcaine/1% lidocaine. Sponge, needle, and instrument counts reported correct. Patient tolerated the procedure well and emerged from anesthesia stable condition. EBL minimal. Abdominal binder were placed.
[2024-09-10] MEDS: Ondansetron ODT 4 MG TAB.RAPDIS TRANSLINGU (12:22)
== END 2024-09-10 13:11 | disposition home or self-care (01) ==
PROVIDERS: Nurse Practitioner; PCP Nurse Practitioner Family; Visit Provider Surgery
PROC: (CPT 49616; principal; 2024-09-10 09:00)
DX: K43.0 Incisional hernia with obstruction, without gangrene (principal); T83.728A Exposure of other implanted mesh into organ or tissue, initial encounter; Y81.2 Prosthetic and other implants, materials and accessory general- and plastic-surgery devices associated with adverse incidents; K66.0 Peritoneal adhesions (postprocedural) (postinfection); N99.4 Postprocedural pelvic peritoneal adhesions; E65 Localized adiposity; E66.9 Obesity, unspecified; Z68.29 Body mass index [BMI] 29.0-29.9, adult; E11.9 Type 2 diabetes mellitus without complications; Z79.84 Long term (current) use of oral hypoglycemic drugs; Z79.85 Long-term (current) use of injectable non-insulin antidiabetic drugs; Z79.899 Other long term (current) drug therapy; Z98.890 Other specified postprocedural states
CPT/HCPCS: 49616; 49623; 49999; 81025; 82947; 88302; C1781; J0131; J0690; J1100; J1171; J1885; J2003; J2250; J2405; J2704; J2795; J3010

== ENCOUNTER → 2024-09-10 06:22 | Outpatient (BNV) | payer BC, MEDICAID, SELFPAY | PROVIDERS: PCP Nurse Practitioner Family; Visit Provider Surgery | DX: K43.0 Incisional hernia with obstruction, without gangrene (principal) | CPT/HCPCS: 49615; 49623 ==

== ENCOUNTER 2024-09-20 08:43 | Outpatient (AMB) | payer BC, MEDICAID, SELFPAY ==
--- OUTSIDE RECORDS SUMMARY | 2024-09-20 08:46 | XMS_ITS ---
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 Name Role Phone SURENDRA WING Primary Care Provider SURENDRA WING Unavailable [phone] REASON FOR VISIT New Refill Request Medications Medication SIG (Take, Route, Fr equency, Duration) Notes Start Date End Date Status Simvastatin 20 MG 1 tablet in the even ing Orally Once a day for 90 days Active Lisinopril 5 MG 1 tablet Orally Once a day for 90 days Active Encounters Encounter Location Date Provider Diagnosis [address] [place] [address] 08/28/2023 SURENDRA WING Type 2 diabetes mellitus without complication, without long-term current use of insulin E11.9 Assessments Encounter Date Diagnosis (ICD Code) Assessment Notes Treatment Notes Treatment Clinical Notes Section Notes 08/28/2023 Type 2 diabetes mellitus without complication, without long-term current use of insulin (ICD-10 - E11.9) Type 2, also hx of gestational diabetes Plan Of Treatment Medication Medication Name Sig Start Date Stop Date Notes Simvastatin 20 MG 1 tablet in the even ing Orally Once a day for 90 days Lisinopril 5 MG 1 tablet Orally Once a day for 90 days Progress Notes * Mary Jo MACE MDOB:1975 (47 yo F)Acc No.[id number]:08/28/2023 Patient:?Mary Jo Mace :1975???Age:47 Y???Sex:Female Address:[address] [place] [address], [address] * Refills? Refill Lisinopril Tablet, 5 MG, Orally, 90 Tablet, 1 tablet, Once a day, 90 days, Refills=2 Refill Simvastatin Tablet, 20 MG, Orally, 90, 1 tablet in the evening, Once a day, 90 days, Refills=2 * true * Date:? Generated for Elsa matos/Serjio/Niravitting on:?09/20/2024 08:46 AM EST
--- OUTSIDE RECORDS SUMMARY | 2024-09-20 08:46 | XMS_ITS ---
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 Name Role Phone SURENDRA WING Primary Care Provider [phone] SURENDRA WING Unavailable [phone] REASON FOR VISIT Re:RE:New Refill Request Medications Medication SIG (Take, Route, Frequency, Duration) Notes Start Date End Date Status Ozempic (2 MG/DOSE) 8 MG/3ML inject one dose Subcutaneous once weekly for 90 days Active Encounters Encounter Location Date Provider Diagnosis [facility] [address] [facility] [facility] [address] [place] [address] 08/28/2023 SURENDRA WING Type 2 diabetes mellitus [...] Name Sig Start Date Stop Date Notes Ozempic (2 MG/DOSE) 8 MG/3ML inject one dose Subcutaneous once weekly for 90 days Progress Notes * Mary Jo MACE MDOB:1975 (47 yo F)Acc No.[id number]:08/28/2023 Patient:?Mary Jo Mace :1975???Age:47 Y???Sex:Female Address:[address] [place] [address], [address] * Refills? Refill Ozempic (2 MG/DOSE) Solution Pen-injector, 8 MG/3ML, Subcutaneous, 12, inject one dose, once weekly, 90 days, Refills=3 * true * Date:? Generated for Elsa matos/Serjio/Niravitting on:?09/20/2024 08:46 AM EST
--- OUTSIDE RECORDS SUMMARY | 2024-09-20 08:46 | XMS_ITS | Data Portability ---
Author Organization ERNIE alvarez [facility] Address [address] [place] [address] Assessment No assessment recorded. Plan of Treatment Reminders Order Date Submit Date Provider Last Modified By Organization Details Last Modified Time Details Appointments None recorded. Lab rapid strep group A, throat 2022 023 [email or web address] _[facility], [address] [facility], [place], [address], 10:48:44 Referral None recorded. Procedures None recorded. Surgeries None recorded. Imaging None recorded. Medication Orders amoxicillin 500 mg capsule 2022 023 [id number], [address], [place], [address], 10:48:46 Patient TargetsNo targets recorded. Patient Instructions Encounter Date Encounter Id Patient Instructions Last Modified By Organization Details Last Modified Time 01/04/2023 [id number] sore throat: car e instructions [email or web address] Not available 01/04/2023 10:48:44 Based on your Presentation, Exam, and Lab Testing you are being diagnosed with Pharyngitis. Your Rapid Strep Test was Negative. Most likely your sore throat is being caused by a virus, post nasal drip, or silent acid reflux. I am going to send a Throat Culture to the lab for you to make sure you don't have a different form of strep in your throat. This will take about 72 hours for that result to return. We will contact you if it positive - if for some reason you don't get a copy of your results or hear from us - please contact our office. I am going to prescribe you and antibiotic to cover this infection. Please be sure to complete the full course of this antibiotic to prevent antibiotic resistance. It is also important to complete this antibiotic because this infection is what causes Scarlet Fever/Rheumatic Heart Disease. Antibiotics will typically take 4-5 days to start to work with symptom improvement. The following are my other recommendations to help with symptoms and is important for this diagnosis: 1. Do not share any food or drinks - strep is passed through direct saliva exchange (NOT IN THE AIR) 2. Change your toothbrush in 3-4 days so that you don't re-infect yourself after you complete the antibiotic. 3. Take Ibuprofen or Tylenol if you do not have any allergies to these medications. If you take a blood thinner you should not take NSAIDS like Ibuprofen. These medication will help with the inflammation in your respiratory tract which should help the cough. (I would alternate between Tylenol 650 mg and your Ibuprofen 600 mg every 4 hours) 4. Do not take any Cold Medications that have a Decongestant in it - this will dry out your throat and make the sore throat worse. 5. Drinking Hot Tea with honey can help coat and soothe your throat. 6. You would be considered contagious for the next 24-48 hours, or until fever resolves. I would be seen again if you develop any of the following symptoms. 1. Fever > 101.0 2. Stiff neck - where you can't turn your neck 3. Trouble swallowing your saliva - drooling 4. Swelling of a lymph node in your throat that is painful to touch 5. Difficulty breathing 6. Severe Headache Thank you for using [employer] today, please feel free to contact our office if you have any questions or concerns. [email or web address] Not available 01/04/2023 10:48:22 Reason for Referral None Reported. Results Created Date Observation Date Name Description Value Unit Range Abnormal Flag Note LastModifiedBy Organization Detail LastModifiedTime 01/05/2001/04/2023 rapid strep group A, throa t Unknown Analyte Normal = Negati ve Not Available [facility] [address] [place] [address], [place], [address], 01/04/2023 10:12:14 01/05/20 23 01/04/2023 rapid strep group A, throa t Unknown Analyte negati ve Not Available [facility] [address] [place] [address], [place], [address], 01/04/2023 10:12:14 Result Notes None recorded. Problems Name Problem SNOMED Code Status Onset Date Resolution Date Notes Provider Name and Address Organization Details Recorded Time Type 2 diabetes mellitus 51990059 Active 023 LORENA galeana PA - [facility] 3 10:10:48 Problem Notes None recorded. Procedures Surgical History Date Name Laterality Status Provider Name and Address Organization Details Recorded Time 2 hernia repair completed LORENA FOFANA PA - [facility] 01/04/2023 10:12:32 Imaging Results None recorded. Procedure Notes None recorded. Medical Equipment None Reported. Allergies No known drug allergies Medications Name Sig Start Date Stop Date Status Note LastModified by Organization Details LastModified Time amoxicillin 500 mg capsule Take 1 capsule 3 times a day by oral route for 10 days. 023 active Not Available Not Available Not Avai lable metformin active Not Available Not Hermila ilable Not Available Vitals Date Recorded Body height Body mass index (BMI) Body weight Body temperature Respiratory rate Heart rate Oxygen saturation Oxygen saturation in Arterial blood by Pulse oximetry Systolic blood pressure Diastolic blood pressure Provider Name and Address Organization Details Last Updated DateTime 3 177.8 cm 31.3 kg/m2 66120.1 4 g 97.8 [degF] 18 /min 64 /min 97 % 97 % 110 mm[Hg] 71 mm[Hg] LORENA Seay PA - [facility] 3 10:14:38 Social History Question Answer Notes LastModified by Organizat ion Details LastModified Time Tobacco Smoking Status Former Smoker LORENA galeana PA - [facility] 01/04/2023 10:11:48 What Is Your Level Of Alcohol Consumption? None Information not available 01/04/2023 What Is Your Water Source? City Information not available 01/04/2023 What Is Your Heat Source? Other Information not available 01/04/2023 Have You Had Direct Contact, Or Contact During Intimacy, With Monkeypox Rash, Scabs, Or Body Fluids From A Person With Monkeypox? No Information not available 01/04/2023 Do You Use Any Illicit Or Recreational Drugs? No Information not available 01/04/2023 Have You Recently Traveled Abroad? No Information not available 01/04/2023 Do You Or Have You Ever Used Any Other Forms Of Tobacco Or Nicotine? No Information not available 01/04/2023 Sex: Unknown Functional Status None recorded. Mental Status None recorded. Family History Relationship Description Onset Age of this Age Resolved Age Notes LastModified by Organization Details LastModified Time Father No current problems or disability Not available 10:10:52 Father Type 2 diabetes mellitus Not available 10:11:12 Father Malignant tumor of esophagus Not available 10:11:31 Mother No current problems or disability Not available 10:10:52 Medical History No medical history recorded. Gynecological HistoryNo gynecological history recorded. Obstetrics History GPAL:G 0 P 0 0 0 0 Past Encounters Encounter ID Performer Location Encounter Start Date Encounter Closed Date Diagnosis/Indication Diagnosis SNOMED-CT Code Diagnosis ICD10 Code [id number] [address] [facility] [place] [address] 06/13/2016 13:18:53 06/13/2016 13:57:07 [id number] [address] [place] [address] 08/31/2018 10:36:29 08/31/2018 11:56:39 [id number] [address] [place] [address] 06/21/2021 09:07:41 06/21/2021 11:38:44 [id number] [address] [place] [address] 06/26/2018 18:47:14 06/26/2018 19:48:24 [id number] [address] [place] [address] 11/11/2018 18:23:41 11/11/2018 18:49:15 [id number] [place] [address] 11/08/2018 08:53:45 11/08/2018 10:00:01 [id number] [address] [place] [address] 08/21/2018 09:33:37 08/21/2018 09:34:35 [id number] [address] [place] [address] 06/18/2016 11:56:10 06/18/2016 13:20:11 [id number] [address] [place] [address] 12/04/2017 13:16:26 12/04/2017 15:05:55 [id number] ERNIE RICKS [address] [place] [address] 01/04/2023 08:58:22 01/04/2023 10:51:14 Acute pharyngitis 131739234 J02.9 Health Concerns Section Related Observation LastModified by Organization Detai ls LastModified Time None Recorded Concern Status LastModified by Organization Details LastModified Time None Recorded Advance Directives Directive None Recorded Payers Encounter Date Sequence Insurance Name Policy Number Policy Coulter Covered Member ID Coulter Member ID Guarantor Name 06/21/2021 1 [facility] [id number] Mary Jo Yuan [id number] Mary Jo Yuan 01/04/2023 2 [place] [facility] Mary Jo Mittal Yuan [id number] Mary Jo Yuan 01/04/2023 1 [place] Mary Jo Yuan [id number] Mary Jo Yuan Notes Date Note Type Note Provider Name and Address Organization Details Recorded Time 3 text/html Sore throatReported bypatient.Source of patient informationInformation obtained from patient; Patient arrived at Urgent Care ambulatory Location:throat Severity:moderate Quality:hurts to swallow Onset/Timin days Associated Symptoms:no cough; no sputum production; no shortness of breath; no wheezing; no sinus pain; no vomiting; no nausea; No hoarseness;sore throat Context:sick contact Modifying Factors:exposed to Strep household * ERNIE RICKS [address] [place], [address], PA - [facility] 01/04/2023 10:49:50 OBGyn Episode No OBEpisode recorded.
--- OUTSIDE RECORDS SUMMARY | 2024-09-20 08:47 | XMS_ITS | Patient Health Record ---
Author Organization [facility] Address [address] [place] [address] Care Team Providers Care Studio Control Operator Name Role Phone SURENDRA WING Primary Care Provider SURENDRA WING Unavailable [phone] Allergies No Known Allergies Reason For Referral No Information Medications Medication SIG (Take, Route, Frequency, Duration) Notes Start Date End Date Status FreeStyle Lancets - as directed In Vitro To Test BS Test QD Or As Directed By . DX: E11.9 for 90 days 10/25/2020 Active FreeStyle Lite Test - as directed In Vit ro Test QD Or As Directed By MD. DX: E11.9 for 90 days 10/25/2020 Active Ozempic (2 MG/DOSE) 8 MG/3ML inject one dose Subcutaneous once weekly for 90 days Active Simvastatin 20 MG 1 tablet in the even ing Orally Once a day for 90 days Active Lisinopril 5 MG 1 tablet Orally Once a day for 90 days Active Amoxicillin 875 MG 1 tablet Orally ever y 12 hrs for 10 day(s) 09/28/2021 Not-Taking Rybelsus 3 MG 1 tablet at least 30 minutes before first food, beverage or other oral medicine of the day Orally Once a day for 30 days Not-Taking BD Pen Needle Mini U/F 31G X 5 MM as directed for use with insulin pen QD DX: E11.9 for 90 days 01/28/2020 Not-Taking Basaglar KwikPen 100 UNIT/ML 4 units Subcutaneous in evening for 30 days 10/19/2019 Not-Taking Loratadine 10 MG TAKE 1 TABLET BY EVERY DAY Orally PRN Active Fluticasone Propionate 50 MCG/ACT SPRAY EACH NOSTRIL 1-2 TIMES DAILY for 30 Active FreeStyle Lite - as directed In Vitro To Test BS QD Or As Directed By . DX: E11.9 for 365 days 10/25/2020 Active metFORMIN HCl ER 500 MG 2 tablets with e vening meal Orally twice a day for 90 days Active Immunizations Vaccine Route Administration Date Status Comme nts PPD Unknown 12/16/2014 Pending MIG_SID-Immuni z ation Date :16Dec2014 03:43PM Td (adult) preservative free Unknown 2014 Pending Tdap IM Intramuscular 2014 Administered MIG_SI D-Immuniz ation Date :08Dec2014 03:06PM Social History Tobacco Use: Social History Observation Description Date Details (start date - stop date) Former Smoker NA - NA Tobacco Use/Smoking Question Answer Notes Are you a former smoker How long has it been since you last smoked? > 10 years Additional Findings: Tobacco Non-User Current no n-smoker Alcohol Screen (Audit-C) Question Answer Notes Did you have a drink containing alcohol in the p ast year? No Points 0 Interpretation Negative Tobacco use other than smoking: Question Answer Notes Are you an other tobacco user? 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 Makes $65462 a year. Has $84,000 in school loans. Finished master's degree in January 2018 wears sunscreen when outside. Sees Jessy in [place]. Has edgardo and had randa mccarthy t. Lives with boyfriend who is father of her 2 yo twins. He does not help at home or with child support agent. Parents live in [place] and are in [place]. 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 Makes $68886 a year. Has $84,000 in school loans. Finished master's degree in January 2018 wears sunscreen when outside. Sees Derm in [place]. Has rosacea and had laser fori t. Lives with boyfriend who is father of her 2 yo twins. He does not help at home or with child support agent. Parents live in [place] and are in [employer]. 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 Makes $77604 a year. Has $84,000 in school loans. Finished master's degree in January 2018 wears sunscreen when outside. Sees Derm in [place]. Has rosacea and had laser fori t. Lives with boyfriend who is father of her 2 yo twins. He does not help at home or with child support agent. Parents live in [place] and are in the[place] 70[place]. 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 Makes $03135 a year. Has $84,000 in school loans. Finished master's degree in January 2018 wears sunscreen when outside. Sees Derm in [place]. Has rosacea and had laser fori t. Lives with boyfriend who is father of her 2 yo twins. He does not help at home or with child support agent. Parents live in [place] and are in the[place] 70[place]. 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 Makes $86879 a year. Has $84,000 in school loans. Finished master's degree in January 2018 wears sunscreen when outside. Sees Derm in [place]. Has rosacea and had laser fori t. Lives with boyfriend who is father of her 2 yo twins. He does not help at home or with child support agent. Parents live in [place] and are in [place] 70[place]. 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 Makes $57201 a year. Has $84,000 in school loans. Finished master's degree in January 2018 wears sunscreen when outside. Sees Derm in [place]. Has rosacea and had laser fori t. Lives with boyfriend who is father of her 2 yo twins. He does not help at home or with child support agent. Parents live in [place] and are in [place] 70[place]. 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 Finished master's degree in January 2018 wears sunscreen when outside. Sees Derm in [place]. Has rosacea and had laser fori t. 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 Finished master's degree in January. 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 Finished master's degree in January. wears sunscreen when outside. 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 Makes $24017 a year. Has $84,000 in school loans. Finished master's degree in January 2018 wears sunscreen when outside. Sees Derm in [place]. Has rosacea and had laser fori t. Lives with boyfriend who is father of her 2 yo twins. He does not help at home or with child support agent. Parents live in [place] and are in [place] 70[place]. 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 Makes $96546 a year. Has $84,000 in school loans. Finished master's degree in January 2018 wears sunscreen when outside. Sees Derm in [place]. Has rosacea and had laser fori t. Lives with boyfriend who is father of her 2 yo twins. He does not help at home or with child support agent. Parents live in [place] and are in the[place] 70[place]. 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 Finished master's degree in January 2018 wears sunscreen when outside. Sees Derm in [place]. Has rosacea and had laser fori t. 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 Makes $89778 a year. Has $84,000 in school loans. Finished master's degree in January 2018 wears sunscreen when outside. Sees Derm in [place]. Has rosacea and had laser fori t. Lives with boyfriend who is father of her 2 yo twins. He does not help at home or with child support agent. Parents live in [place] and are in the[place] 70[place]. 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 Makes $25444 a year. Has $84,000 in school loans. Finished master's degree in January 2018 wears sunscreen when outside. Sees Derm in [place]. Has rosacea and had laser fori t. Lives with boyfriend who is father of her 2 yo twins. He does not help at home or with child support agent. Parents live in [place] and are in the[place] 70[place]. 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 Makes $71075 a year. Has $84,000 in school loans. Finished master's degree in January 2018 wears sunscreen when outside. Sees Derm in [place]. Has rosacea and had laser fori t. Lives with boyfriend who is father of her 2 yo twins. He does not help at home or with child support agent. Parents live in [place] and are in the[place] 70[place]. 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 Makes $31818 a year. Has $84,000 in school loans. Finished master's degree in January 2018 wears sunscreen when outside. Sees Derm in [place]. Has rosacea and had laser fori t. Lives with boyfriend who is father of her 2 yo twins. He does not help at home or with child support agent. Parents live in [place] and are in [place] 70[place]. 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 Makes $06596 a year. Has $84,000 in school loans. Finished master's degree in January 2018 wears sunscreen when outside. Sees Derm in [place]. Has rosacea and had laser fori t. Lives with boyfriend who is father of her 2 yo twins. He does not help at home or with child support agent. Parents live in [place] and are in the[place] 70[place]. 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 Makes $53001 a year. Has $84,000 in school loans. Finished master's degree in January 2018 wears sunscreen when outside. Sees Derm in [place]. Has rosacea and had laser fori t. Lives with boyfriend who is father of her 2 yo twins. He does not help at home or with child support agent. Parents live in [place] and are in the[place] 70[place]. 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 Makes $64651 a year. Has $84,000 in school loans. Finished master's degree in January 2018 wears sunscreen when outside. Sees Derm in [place]. Has rosacea and had laser shari becker Lives with boyfriend who is father of her 2 yo twins. He does not help at home or with child support agent. Parents live in [place] and are in the[place] 70's. 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 Makes $30119 a year. Has $84,000 in school loans. Finished master's degree in January 2018 wears sunscreen when outside. Sees Derm in [place]. Has rosacea and had laser shari dodson. Lives with boyfriend who is father of her 2 yo twins. He does not help at home or with child support agent. Parents live in [place] and are in therir 70's. seatbelt yes Problems Problem Type SNOMED Code ICD Code Onset Dates Problem Status W/U Status Risk Notes Problem Vaccination given (343402938) Encounter for immunization (Z23) Active confirmed Problem 322260061 Rosacea (L71.9) Active confirmed sx active at this time. wants to return to her derm for further attempts at treatment. Problem Sinusitis (81983008) Sinusitis (J32.9) Active confirmed Problem 643939876 Obesity (BMI 30-39.9) (E66.9) Active confirmed is back on protein shakes for breakfast and dinner, healhty meal for lunch for a weight loss program Advised MVI Problem 756758136 Type 2 diabetes mellitus without complication, without long-term current use of insulin (E11.9) Active confirmed Type 2, also hx of gestational diabetes Problem Annual health maintenance examination (55037403) Annual physical exam (Z00.00) Active confirmed Problem 74294121 Genital herpes simplex, unspecified site (A60.00) Active confirmed Problem 650176854 Elevated LFTs (R94.5) Active confirmed consumes minimal alcohol. most likely fatty liver. repeat labs. discussed need for continued weight loss. US 09/2019: fatty infiltration of liver with hepatomegally ( 23.4 cm) Problem 80773278 Current moderate episode of major depressive disorder, unspecified whether recurrent (F32.1) Active confirmed Mood is better, PHQ-9 negative. off meds and does not feel that she needs them. Plan Of Treatment Pending Test Test Name Order Date Hemoglobin A1c 09/30/2019 Varicella-Zoster V Ab, IgG 04/11/2016 MAMMOGRAM, SCREENING 09/27/2019 MAMMOGRAM, SCREENING 09/23/2018 Hgb A1c with MBG Estimation 10/19/2019 Lipid Panel 09/27/2019 Basic Metabolic Panel (8) 10/05/2020 CBC 09/27/2019 Microalb/Creat Ratio, Randm Ur 0 Comp. Metabolic Panel (14) 01/28/2020 Lipid Panel 10/05/2020 HgA1C 10/05/2020 HgA1C 02/02/2021 BASIC METABOLIC PANEL 02/02/2021 Future Test Test Name Order Date JACK w/Reflex 09/23/2018 Hepatitis Panel (4) 04/08/2019 Microalb/Creat Ratio, Randm Ur 1 Lipid Panel 01/01/2021 HgA1C 05/11/2021 BASIC METABOLIC PANEL 05/11/2021 COMPREHENSIVE METABOLIC PANEL 09/06/2022 BASIC METABOLIC PANEL (BMP) 12/16/2022 GLYCOHEMOGLOBIN PROFILE 12/16/2022 LIPID PROFILE 12/16/2022 BASIC METABOLIC PANEL (BMP) 03/11/2023 HgA1C 03/11/2023 BASIC METABOLIC PANEL (BMP) 03/15/2023 GLYCOHEMOGLOBIN PROFILE 03/15/2023 Insurance Providers Payer Name Payer Address Payer Phone Subscriber Number Group Number Insured Name Patient Relationship to Insured Coverage Start Date Coverage End Date [facility] [address] [place] [address] [phone] [id number] Mary Jo Yuan Self - patient is the insured 2 [place] [address] [place] [address] [phone] [id number] Mary Jo Yuan Self - patient is the insured Medical (General) History Medical History History ICD Code , History of varicella covid 19 Surgical History Surgery Date(Month/Year) Umbilical Hernia Repair 03/08/2016 knee surgery [facility] 09/01/15 abdominal wall hernia repair, mesh [facility] . 2021
--- OUTSIDE RECORDS SUMMARY | 2024-09-20 08:47 | XMS_ITS ---
Author Organization [facility] Address [address] [place] [address] Care Team Providers Care Preschool Disability Teacher Name Role Phone SURENDRA WING Primary Care Provider SURENDRA WING Unavailable [phone] REASON FOR VISIT New Refill Request Encounters Encounter Location Date Provider Diagnosis [facility] [address] [place] [address] 08/28/2023 SURENDRA WING Plan Of Treatment No Information Progress Notes * Mary Jo YUAN MDOB:1975 (47 yo F)Acc No.[id number]:08/28/2023 Patient:?Mary Jo Yuan :1975???Age:47 Y???Sex:Female Address:[address] [place] [address], [address] * true * Date:? Generated for Printi ng/Fakarinag/eTransmitting on:?09/20/2024 08:46 AM EST
--- NOTE | 2024-09-20 08:52 | A.OFFVIS_ITS ---
Intake Visit Reasons: s/p umbilical hernia w/mesh Intake Note: Patient here s/p mesh explantation, adhesionolysis, repair of recurrent incarcerated ventral hernia with Bard mesh. Reports incisions healing well. Patient c/o: steri strips present. No longer taking rx pain meds. 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 Aside from incisional discomfort patient was doing well. She is starting a diet. Having regular bowel habits. He is increasing her activity level. She has minimal incisional discomfort. [facility] Medical History (Updated 09/08/24 @ 11:10 by Homa Walton RN) Cervical cancer screening Obesity (BMI 30.0-34.9) Diabetes Umbilical hernia Surgical History (Updated 09/20/24 @ 09:36 by Willie Cabrera MD) Recurrent umbilical hernia (09/10/24) Hx of hernia repair Hx of knee surgery Family History Father Esophageal cancer Social History Patient Tobacco Use Status: Never used Tobacco Female Reproductive History Menstrual Age of Menarche: 15 Physical Exam GI Other: Abdomen is soft, benign. Incision clean dry and intact. Some surrounding ecchymosis which the patient stasis resolving. Assessment & Plan Assessment & Plan (1) Status post umbilical hernia repair, follow-up exam: Code(s): Z09 - Encounter for follow-up examination after completed treatment for conditions other than malignant neoplasm Category: Medical Plan Patient has been given local instructions including avoiding strenuous activities next few weeks time, continue were abdominal binder, and will otherwise follow-up p.r.n.. All questions answered. Coding Level of Care Code Global (00815) Diagnoses Status post umbilical hernia repair, follow-up exam Z09
== END 2024-09-20 09:20 | disposition home or self-care (01) ==
PROVIDERS: PCP Nurse Practitioner Family; Visit Provider Surgery
DX: Z09 Encounter for follow-up examination after completed treatment for conditions other than malignant neoplasm (principal)
CPT/HCPCS: 99212

== ENCOUNTER 2025-03-31 09:00 | Outpatient (REF) | payer OTHER, SELFPAY | END 2025-03-31 09:01 | disposition home or self-care (01) | LOC: HO.MAMMO 09:00 | PROVIDERS: PCP Nurse Practitioner Family; Visit Provider Nurse Practitioner Family | DX: Z12.31 Encounter for screening mammogram for malignant neoplasm of breast (principal) | CPT/HCPCS: 77063; 77067 ==

== ENCOUNTER → 2025-03-31 09:30 | Outpatient (BNV) | payer OTHER, SELFPAY | PROVIDERS: PCP Nurse Practitioner Family; Visit Provider Radiology Body Imaging | DX: Z12.31 Encounter for screening mammogram for malignant neoplasm of breast (principal) | CPT/HCPCS: 77063; 77067 ==

== ENCOUNTER 2025-09-07 09:50 | Outpatient (REF) | payer OTHER, SELFPAY ==
[2025-09-07 14:30] LABS: Hematocrit 40.5 % (37.0-47.0); Hemoglobin 13.0 g/dl (12.0-16.0); Mean Corpuscular HGB Conc 32.1 g/dl (31.0-35.0); Mean Corpuscular Hemoglobin 28.4 pg (27.0-33.0); Mean Corpuscular Volume 88.6 fL (80.0-98.0); NRBC Abs Auto 0.000 X10*3/uL (0.0-0.012); NRBC Pct Auto 0.0 /100WBC (0.0-0.2); Platelet Count 269 X10*3/uL (160-400); Red Blood Count 4.57 X10*6/uL (4.20-5.50); White Blood Count 10.0 X10*3/uL (4.8-10.8)
--- OUTSIDE RECORDS SUMMARY | 2025-09-07 14:52 | XMS_ITS | Data Portability ---
Author Organization [facility] Address [address] [place] [address] Assessment No assessment recorded. Plan of Treatment Reminders Order Date Submit Date Provider Last Modified By Organization Details Last Modified Time Details Appointments None recorded. Lab rapid strep group A, throat 2022 023 [email or web address] _[facility], [address] [place], [address], 10:48:44 Referral None recorded. Procedures None recorded. Surgeries None recorded. Imaging None recorded. Medication Orders amoxicillin [address] [facility] #[id number], [address] [place], [address], 10:48:46 Patient TargetsNo targets recorded. Patient Instructions Encounter Date Encounter Id Patient Instructions Last Modified By Organization Details Last Modified Time 01/04/2023 [id number] sore throat: car e instructions [email or web address] Not available 01/04/2023 10:48:44 Based on your [...] 6. Severe Headache Thank you for using [facility] today, please feel free to contact our office if you have any questions or concerns. [email or web address] Not available 01/04/2023 10:48:22 Reason for Referral None Reported. Results Created Date Observation Date Name Description Value Unit Range Abnormal Flag Note LastModifiedBy Organization Detail LastModifiedTime 01/05/20 23 01/04/2023 rapid strep group A, throa t Unknown Analyte Normal = Negati ve Not Available [id number] [place] [address], [place], [address], 01/04/2023 10:12:14 01/05/20 23 01/04/2023 rapid strep group A, throa t Unknown Analyte negati ve Not Available [id number] [place] [address], [place], [address], 01/04/2023 10:12:14 Result Notes None recorded. Problems Name Problem SNOMED Code Status Onset Date Resolution Date Notes Provider Name and Address Organization Details Recorded Time Type 2 diabetes mellitus 46436762 Active 023 L[facility]aleana [facility] - [facility] temperature Respiratory rate Heart rate Oxygen saturation Systolic And Diastolic Provider Name and Address Organization Details Last Updated DateTime 3 177.8 cm 31.3 kg/m2 16529.1 4 g 97.8 [degF] 18 /min 64 /min 97 % 110/71 mm[Hg] LORENA Seay PA - [facility] 3 10:14:38 Social History Question Answer Notes LastModified by Organizat ion Details LastModified Time Tobacco Smoking Status Former Smoker LORENA galeana PA - [facility] 01/04/2023 10:11:48 What Is Your Water Source? City Information not available 01/04/2023 What Is Your Heat Source? Other Information not available 01/04/2023 Have You Had Direct Contact, Or Contact During Intimacy, With Monkeypox Rash, Scabs, Or Body Fluids From A Person With Monkeypox? No Information not available 01/04/2023 Have You Recently Traveled Abroad? No Information not available 01/04/2023 Sex: Unknown Functional Status Question Answer Note LastModified by Organizat ion Details LastModified Time Do you use any illicit or recreational drugs? No Information not available 01/04/2023 Do you or have you ever used any other forms of tobacco or nicotine? No Information not available 01/04/2023 What is your level of alcohol consumption? None Information not available 01/04/2023 Mental Status None recorded. Family History Relationship Description Onset Age of this Age Resolved Age Notes LastModified by Organization Details LastModified Time Father No current problems or disability Not available 10:10:52 Father Type 2 diabetes mellitus Not available 10:11:12 Father Malignant neoplasm of esophagus Not available 10:11:31 Mother No current problems or disability Not available 10:10:52 Medical History No medical history recorded. Gynecological HistoryNo gynecological history recorded. Obstetrics History GPAL:G 0 P 0 0 0 0 Past Encounters Encounter ID Performer Location Encounter Start Date Encounter Closed Date Diagnosis/Indication Diagnosis SNOMED-CT Code Diagnosis ICD10 Code Diagnosis IMO Codes Diagnosis Note [id number] [facility] [address] [facility] [address] [place] [address] 06/13/2016 13:18:53 06/13/2016 13:57:07 [id number] [facility] [place] [address] 08/31/2018 10:36:29 08/31/2018 11:56:39 [id number] [facility] [place] [address] 06/21/2021 09:07:41 06/21/2021 11:38:44 [id number] [address] [place] [address] 06/26/2018 18:47:14 06/26/2018 19:48:24 [id number] [address] [place] [address] 11/11/2018 18:23:41 11/11/2018 18:49:15 [id number] [address] [place] [address] 11/08/2018 08:53:45 11/08/2018 10:00:01 [id number] [address] [place] [address] 08/21/2018 09:33:37 08/21/2018 09:34:35 [id number] [address] [place] [address] 06/18/2016 11:56:10 06/18/2016 13:20:11 [id number] [address] [place] [address] 12/04/2017 13:16:26 12/04/2017 15:05:55 [id number] ERNIE RICKS [address] [place] [address] 01/04/2023 08:58:22 01/04/2023 10:51:14 Acute pharyngitis [id number] J02.9 Maybe start an antihistam ine - like Claritin or zyrtec. Benedryl at night if you have it. Health Concerns Section Related Observation LastModified by Organization Detai ls LastModified Time None Recorded Concern Status LastModified by Organization Details LastModified Time None Recorded Advance Directives Directive None Recorded Payers Insurance Date Sequence Insurance Name Policy Number Policy Coulter Covered Member ID Coulter Member ID Guarantor Name 11/19/2023 1 [facility] [id number] Mary Jo Yuan [id number] Mary Jo Yuan 11/19/2023 GENERIC AUTO INSURANCE (MOVED TO HOLD) Mary Jo Yuan Mary Jo Yuan 11/19/2023 2 [place] [facility] Mary Jo Mittal Yuan [id number] Mary Jo Yuan 11/19/2023 1 [place] Mary Jo Yuan [id number] Mary Jo Yuan Notes Date Note Type Note Provider Name and Address Organization Details Recorded Time 01/04/2023 text/html Sore throatRepor errol by PatientSore ThroatFor associated symptoms, patient reportssore throatbut reportsno cough,no sputum production,no shortness of breath,no wheezing,no sinus pain,no vomiting,no nausea, andno hoarseness. For context, patient reportssick contact. For modifying factors, patient reportsexposed to strep household *. For source of patient information, patient reportsinformation obtained from patientandpatient arrived at urgent care ambulatory. For location, patient reportsthroat. For severity, patient reportsmoderate. For quality, patient reportshurts to swallow. For onset/timing, patient reports3 days. ERNIE RICKS [address] [place], [address], [place] - [facility] 01/04/2023 10:49:50 OBGyn Episode No OBEpisode recorded.
[2025-09-08 04:48] LABS: Follicle Stimulating Hormone 4.0 mIU/mL
== END 2025-09-07 09:51 | disposition home or self-care (01) ==
LOC: HO.HHCL 09:50
PROVIDERS: PCP Nurse Practitioner Family; Visit Provider Advanced Practice Midwife
DX: N92.6 Irregular menstruation, unspecified (principal); N92.4 Excessive bleeding in the premenopausal period; E11.9 Type 2 diabetes mellitus without complications; E66.9 Obesity, unspecified; Z32.02 Encounter for pregnancy test, result negative; Z68.31 Body mass index [BMI] 31.0-31.9, adult; Z79.84 Long term (current) use of oral hypoglycemic drugs
CPT/HCPCS: 36415; 83001; 84146; 84443; 84702; 85027

== ENCOUNTER 2025-09-07 09:50 | Outpatient (AMB) | payer OTHER, SELFPAY ==
--- NOTE | 2025-09-07 09:51 | MHC.OFFVIS ---
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 After July 21 menses she did not get another menses until Friday and it seemed to start normally and then it became just watery blood kind of running out and down her legs she had some small little clots but no big ones but that is normal for her. However today it is practically nothing she has a tampon in which had only a little bit of streaking on it. She says her periods have always been like clockwork and so this unpredictability is extremely unnerving. 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 She is not sexually active recently she does live in the same house as her ex partner.. Her diabetes is doing fairly well she had plateaued on Ozempic so now she is on Mounjaro but she has not really seen too much change and feels like she maybe plateaued. She sees her primary care provider in [facility].\ This bleeding pattern is so abnormal for her she is worried something is wrong. She does have a history of abnormal Pap smear but this visit isn't scheduled for that She did have hernia repair 3. Done last August and it went well. [facility] Medical History (Updated 09/07/25 @ 10:57 by Cherise Harmon CNM) Cervical cancer screening Obesity (BMI 30.0-34.9) Diabetes Umbilical hernia Surgical History Recurrent umbilical hernia (09/10/24) Hx of hernia repair Hx of knee surgery Family History Father Esophageal cancer Social History Patient Tobacco Use Status: Never used Tobacco Patient : No Female Reproductive History Menstrual Age of Menarche: 15 Duration of menses: <3 days Date of last menstrual period: 09/05/25 Total pregnancies: 6 Full term: 3 Number of Living Children: 4 Multiple births: 1 Date of last pap smear: 04/29/23 (negative pap smear, negative hpv ) History of abnormal pap smear: Yes (2017,ASCUS) Date of Mammogram: 03/31/25 (bi rad 1) Physical Exam Vital Signs: Last Vital Signs BP 128/72 09/07/25 09:57 BMI result Body Mass Index 31.6 Other: External exam within normal limits small amount of dark red menses in vaginal vault multiparous cervix pink smooth with normal-appearing menses scant at this point cervix long close thick mobile nontender uterus small anteverted mobile nontender adnexa nonenlarged good tone with Kegel. Assessment & Plan Assessment & Plan (1) Diabetes: Comment: taking metformin daily & Ozempic on Mondays Code(s): E11.9 - Type 2 diabetes mellitus without complications Category: Medical (2) Menorrhagia, premenopausal: Code(s): N92.4 - Excessive bleeding in the premenopausal period Category: Medical (3) Obesity (BMI 30.0-34.9): Comment: working on it, now bmi 29+, has plateaued.... Code(s): E66.9 - Obesity, unspecified Category: Medical (4) Late menses: Code(s): N92.6 - Irregular menstruation, unspecified Category: Medical (5) Menstrual periods irregular: Code(s): N92.6 - Irregular menstruation, unspecified Category: Medical (6) Perimenopausal symptoms: Code(s): N95.1 - Menopausal and female climacteric states Category: Medical Plan Reviewed this late menses which was after a 6 week period of no menses the menses before was 3 days longer than usual. They are always extremely heavy on the 2nd day or 3rd day that she describes as a ?crime scene This period Has been different in character as well. Will arrange for some blood work that she is going to do today which I expect will be normal a pelvic ultrasound and we will plan on an endometrial biopsy after the ultrasound and we will do her Pap smear at that visit as well. Reviewed that most likely this is all within the range of what to be expected in the saritha menopausal range discussed that if everything is normal a Mirena IUD might provide menstrual improvement in terms of slowing the amount of bleeding but it would also bring hormonal side effects that she has typically wished to avoid. Orders: Orders Follicle Stimulating Hormone Today E11.9 - Type 2 diabetes mellitus without complications, E66.9 - Obesity, unspecified, N92.4 - Excessive bleeding in the premenopausal period, N92.6 - Irregular menstruation, unspecified TSH reflex Free T4 Today E11.9 - Type 2 diabetes mellitus without complications, E66.9 - Obesity, unspecified, N92.4 - Excessive bleeding in the premenopausal period, N92.6 - Irregular menstruation, unspecified HCG Quantitative Today E11.9 - Type 2 diabetes mellitus without complications, E66.9 - Obesity, unspecified, N92.4 - Excessive bleeding in the premenopausal period, N92.6 - Irregular menstruation, unspecified US pelvic and transvaginal Today E11.9 - Type 2 diabetes mellitus without complications, E66.9 - Obesity, unspecified, N92.4 - Excessive bleeding in the premenopausal period, N92.6 - Irregular menstruation, unspecified, N95.1 - Menopausal and female climacteric states Complete Blood Count no Diff Today E11.9 - Type 2 diabetes mellitus without complications, E66.9 - Obesity, unspecified, N92.4 - Excessive bleeding in the premenopausal period, N92.6 - Irregular menstruation, unspecified Prolactin Today E11.9 - Type 2 diabetes mellitus without complications, E66.9 - Obesity, unspecified, N92.4 - Excessive bleeding in the premenopausal period, N92.6 - Irregular menstruation, unspecified Coding Level of Care Code Est Pt Level 3 (10756) Diagnoses Diabetes E11.9 Menorrhagia, premenopausal N92.4 Obesity (BMI 30.0-34.9) E66.9 Late menses N92.6 Menstrual periods irregular N92.6 Perimenopausal symptoms N95.1
[2025-09-07 09:57] VITALS: BP 128/72; BMI 31.6
--- OUTSIDE RECORDS SUMMARY | 2025-09-07 11:47 | XMS_ITS | Clinical Summary ---
Author Organization [facility] Address [address] [place] [address] Phone Care Team Providers Care Quality Improvement Coordinator (Rn) Name Role Phone Yaz Hdez MD Unavailable [phone] Shayy Abad NP Primary Care Provi skylar Unavailable Active Problems Problem Noted Date Diagnosed Date Knee pain 12/07/2013 Overview (11/11/2014): Knee pain Social History Tobacco Use Types Packs/Day Years Used Date Smoking Tobacco: Never Education Answer Date Recorded Are you interested in more education? Not on farooq e 01/17/2023 Are you concerned about learning? Not on file 01/17/2023 No 01/17/2023 No 01/17/2023 Digital Access Answer Date Recorded No 02/17/2023 No 02/17/2023 No 02/17/2023 Reliable internet access at home? Not on file 02/17/2023 Device with a working camera? Not on file Comments Unknown Sex and Gender Information Value Date Recorded Sex Assigned at Not on file Legal Sex Female 2:37 PM EST Gender Identity Not on file Sexual Orientation Not on file Last Filed Vital Signs Vital Sign Reading Time Taken Comments Blood Pressure - - Pulse - - Temperature - - Respiratory Rate - - Oxygen Saturation - - Inhaled Oxygen Concentration - - Weight 86.2 kg (190 lb) 12/07/2013 11:38 AM EDT Height 177.8 cm (5' 10 ) 12/07/2013 11:38 AM EDT Body Mass Index 27.26 12/07/2013 11:38 AM EDT Plan of Treatment Health Maintenance Due Date Last Done Comments Adult Td,Tdap Booster 1976 LIPID PANEL 1976 DEPRESSION SCREENING 1988 SMOKING Hx and SMOKELESS TOBACCO SCREENING 1989 HEPATITIS C SCREENING 1994 HIV ONE-TIME SCREENING (18-6 5 YEARS) 1994 PAP SMEAR 1997 MAMMOGRAM 2016 COLOGUARD 2021 COLONOSCOPY 2021 COLORECTAL CANCER SCREENING 2021 FIT TEST 2021 FOBT 2021 SIGMOIDOSCOPY 2021 VIRTUAL COLONOSCOPY 2021 INFLUENZA VACCINE (#1) 2025 07/19/2020 COVID-19 VACCINE (3 2024-2 6 season) 2025 11/15/2020, 10/18/2020 HEPATITIS A VACCINES Aged Out No long er eligible based on patient's age to complete this topic HIB VACCINES Aged Out No longer eligi ble based on patient's age to complete this topic MENINGOCOCCAL VACCINES (ACWY) Aged Out No longer eligible based on patient's age to complete this topic MENINGOCOCCAL VACCINES (B) Aged Out N o longer eligible based on patient's age to complete this topic PNEUMOCOCCAL VACCINES (0-49 years) Aged Out No longer eligible b ased on patient's age to complete this topic Medical Devices Not on file Insurance HMO O O O O O O Care Teams Quality Improvement Coordinator (Rn) Relationship Specialty Start Date End Date Shayy Abad NP PCP - General 01/30/16 Yaz Hdez MD [address] [place] [id number] [email or web address] 08/15/15 Additional Source Comments The information contained in this document represents components of the legal health record. It is not the complete legal health record.[facility]
== END 2025-09-07 11:08 | disposition home or self-care (01) ==
LOC: HO.HWSM 09:50
PROVIDERS: PCP Nurse Practitioner Family; Visit Provider Advanced Practice Midwife
DX: E11.9 Type 2 diabetes mellitus without complications (principal); N92.4 Excessive bleeding in the premenopausal period; E66.9 Obesity, unspecified; N92.6 Irregular menstruation, unspecified; N95.1 Menopausal and female climacteric states
CPT/HCPCS: 99213

== ENCOUNTER 2025-09-07 11:15 | Outpatient (REF) | payer OTHER, SELFPAY ==
[2025-09-08 02:31] LABS: Bacterial Vaginosis PCR NEGATIVE (Negative); Candida Group PCR NOT DETECTED (Not Detect); Candida glab krusei PCR NOT DETECTED (Not Detect); Trichomonas vaginalis PCR NOT DETECTED (Not Detect)
[2025-09-08 03:01] LABS: CT PCR NOT DETECTED (Not Detect.); NG PCR NOT DETECTED (Not Detect.)
== END 2025-09-07 11:16 | disposition home or self-care (01) ==
LOC: HO.LNP 11:15
PROVIDERS: Visit Provider Advanced Practice Midwife
DX: Z12.4 Encounter for screening for malignant neoplasm of cervix (principal); Z20.2 Contact with and (suspected) exposure to infections with a predominantly sexual mode of transmission
CPT/HCPCS: 81515; 87491; 87591